=== PATIENT | male | born 1945 | race Caucasian/White ===

== ENCOUNTER → 2017-11-01 15:31 | Outpatient (CLI) | payer MEDICARE, SELFPAY ==
--- NOTE | 2017-11-01 | TISS_PTH ---
PATIENT: NATHAN GARCIA LOC: POLAB3 U#:[id number] AGE/SX: 80/M ROOM: RE11/01/[address]: Dr. Brent Rivera MD : 1945 BED: DIS: SPEC #: [id number] RECD: 11/02/17 13:37 STATUS: JAZZY ROSITA #: [id number] CORRY: 11/01/17 00:[address]: Brent Rivera Chi DEPT: SURGICAL PATHOLOGY RECD BY: Manuel Busby Tissues: Jaw, NOS Procedures: Surgery Specimen Level IV HEADER OPERATION: Not noted PRE-OP DIAGNOSIS: L81.9 TISSUE SUBMITTED: Jaw MICROSCOPIC DIAGNOSIS Jaw lesion, biopsy: Inflamed seborrheic keratosis. Solar elastosis. SJ:ike 11/03/17 MICROSCOPIC DESCRIPTION Slides are reviewed. GROSS DESCRIPTION Received is one container labeled with the patient's name and not further designated. The specimen consists of two irregular fragments of light aguiar skin ranging in size from 0.5 to 1 cm. The specimen is totally submitted in one cassette. / AM:ike 11/02/17 TC:1 CPT: 03405
== END ==
PROVIDERS: Family Provider Family Medicine Geriatric Medicine; PCP Family Medicine Geriatric Medicine; Visit Provider Family Medicine Geriatric Medicine
DX: L82.0 Inflamed seborrheic keratosis (principal); L57.8 Other skin changes due to chronic exposure to nonionizing radiation
CPT/HCPCS: 88305

== ENCOUNTER → 2018-01-23 12:05 | Outpatient (CLI) | payer MEDICARE, SELFPAY ==
[2018-01-23 12:40] LABS: Absolute Lymphocyte Count 1.41 X10^3/ul (0.83-4.51); Absolute Neutrophil Count 3.8 X10^3/uL (2.0-7.7); Basophil# 0.04 X10^3/uL; Basophil% 0.7 % (0-1); Eosinophils% 1.7 % (0-5); Hematocrit 46.3 % (40-54); Hemoglobin 15.9 g/dl (13.0-16.5); Lymphocyte # 1.41 X10^3/ul (4.0); Lymphocyte % 23.9 % (19-41); Mean Corp Hgb Conc 34.3 g/gl (32-36); Mean Corpuscular Hgb 31.2 pg (27.0-32.0); Mean Platelet Vol. 10.5 fl (6.2-12.0); Monocyte# 0.57 X10^3/uL; Monocyte% 9.7 % (0-10); Neutrophil # 3.77 X10^3/uL (2.7-7.7); Neutrophil % 63.8 % (47-70); Platelet Count 216 K/mm3 (150-450); RBC Distribution Width CV 13.8 % (11.6-14.6); RBC Distribution Width SD 45.5 fl (35.1-43.9); Red Blood Count 5.09 M/mm3 (4.6-6.2); White Blood Count 5.9 K/mm3 (4.4-11.0)
[2018-01-23 12:41] LABS: POSITIVE COUNT NO; POSITIVE DIFFERENTIAL NO; POSITIVE MORPHOLOGY NO
[2018-01-23 13:05] LABS: AST(SGOT) 26 U/L (15-37); Alanine Aminotransfer ALT/SGPT 17 U/L (16-61); Albumin, Serum 3.8 g/dL (3.2-5.0); Alkaline Phosphatase 61 U/L (45-117); Anion Gap 7 (5-15); BUN 10 mg/dL (7-18); BUN/Creat Ratio 7.5 RATIO (10-20); Chloride 109 mmol/L (98-107); Creatinine, Serum 1.34 mg/dL (0.70-1.30); EST Glomerular Filtration Rate 56 mL/min (>60); Est Glom Filt Rate - Afr Amer 67 mL/min (>60); Globulin 3.8 g/dL (2.2-4.2); Glucose 92 mg/dL (74-106); Protein, Total 7.6 g/dL (6.4-8.2); Sodium Level 140 mmol/L (136-145); Thyroid Stim Hormone (TSH) 1.45 uIU/mL (0.358-3.74)
== END ==
PROVIDERS: Family Provider Family Medicine Geriatric Medicine; PCP Family Medicine Geriatric Medicine; Visit Provider Family Medicine Geriatric Medicine
DX: R53.83 Other fatigue (principal)
CPT/HCPCS: 36415; 80053; 84443; 85025

== ENCOUNTER → 2018-02-01 09:32 | Outpatient (CLI) | payer MEDICARE, SELFPAY ==
[2018-02-01 13:10] LABS: Absolute Lymphocyte Count 1.23 X10^3/ul (0.83-4.51); Absolute Neutrophil Count 3.2 X10^3/uL (2.0-7.7); Basophil# 0.04 X10^3/uL; Basophil% 0.8 % (0-1); Eosinophil# 0.08 X10^3/uL; Eosinophils% 1.6 % (0-5); Hematocrit 44.6 % (40-54); Hemoglobin 14.6 g/dl (13.0-16.5); Lymphocyte # 1.23 X10^3/ul (4.0); Lymphocyte % 24.4 % (19-41); Mean Corp Hgb Conc 32.7 g/gl (32-36); Mean Corpuscular Hgb 30.2 pg (27.0-32.0); Mean Corpuscular Volume 92.1 fL (80-94); Mean Platelet Vol. 9.7 fl (6.2-12.0); Monocyte# 0.54 X10^3/uL; Monocyte% 10.7 % (0-10); Neutrophil # 3.16 X10^3/uL (2.7-7.7); Neutrophil % 62.5 % (47-70); Platelet Count 184 K/mm3 (150-450); RBC Distribution Width CV 13.6 % (11.6-14.6); RBC Distribution Width SD 45.1 fl (35.1-43.9); Red Blood Count 4.84 M/mm3 (4.6-6.2); White Blood Count 5.1 K/mm3 (4.4-11.0)
[2018-02-01 13:11] LABS: POSITIVE COUNT NO; POSITIVE DIFFERENTIAL NO; POSITIVE MORPHOLOGY NO
[2018-02-01 13:31] LABS: AST(SGOT) 16 U/L (15-37); Alanine Aminotransfer ALT/SGPT 20 U/L (16-61); Albumin, Serum 3.6 g/dL (3.2-5.0); Alkaline Phosphatase 57 U/L (45-117); Anion Gap 6 (5-15); BUN 11 mg/dL (7-18); BUN/Creat Ratio 8.7 RATIO (10-20); Calcium,Total 8.6 mg/dL (8.5-10.1); Chloride 109 mmol/L (98-107); Creatinine, Serum 1.27 mg/dL (0.70-1.30); EST Glomerular Filtration Rate 59 mL/min (>60); Est Glom Filt Rate - Afr Amer 72 mL/min (>60); Globulin 3.6 g/dL (2.2-4.2); Glucose 85 mg/dL (74-106); Potassium 4.6 mmol/L (3.5-5.1); Protein, Total 7.2 g/dL (6.4-8.2); Sodium Level 142 mmol/L (136-145); Thyroid Stim Hormone (TSH) 1.28 uIU/mL (0.358-3.74); Uric Acid 5.2 mg/dL (3.5-7.2)
[2018-02-01 13:50] LABS: Vitamin D,25 Hydroxy 26.1 ng/mL (29.95-100.01)
[2018-02-02 11:08] LABS: Hep C Antibodies <0.1 s/co ratio (0.0-0.9)
== END ==
PROVIDERS: Family Provider Family Medicine Geriatric Medicine; PCP Family Medicine Geriatric Medicine; Visit Provider Family Medicine Geriatric Medicine
DX: E55.9 Vitamin D deficiency, unspecified (principal); M10.9 Gout, unspecified; R53.83 Other fatigue; Z13.89 Encounter for screening for other disorder
CPT/HCPCS: 36415; 80053; 82306; 84443; 84550; 85025; 86803

== ENCOUNTER 2018-02-15 06:49 | Day surgery (SDC) | payer MEDICARE, SELFPAY ==
[2018-02-15] VITALS (7 sets, daily range): BP systolic 101–142; BP diastolic 66–86; PULSE 53–81; RESP 16; TEMP 36.1–36.3; O2SAT 94–96; BMI 22.4
--- NOTE | 2018-02-15 | COLBX_PTH ---
PATIENT: NATHAN GARCIA LOC: EN U#:[id number] AGE/SX: 73/M ROOM: RE02/15/[address]: Dr. Darrick Wright MD : 1945 BED: DIS: 02/15/2018 SPEC #: [id number] RECD: 02/15/18 13:23 STATUS: JAZZY REOctavia #: [id number] CORRY: 02/15/18 00:[address]: Darrick Wright DEPT: SURGICAL PATHOLOGY RECD BY: Raimundo Sanders ENTERED: 02/15/18 13:24 SP TYPE: COLON BX OTHR DR: Dr. Brent Rivera MD Tissues: Cecum, NOS Procedures: Surgery Specimen Level IV HEADER OPERATION: Colonoscopy PRE-OP DIAGNOSIS: Screening TISSUE SUBMITTED: Cecal polyp MICROSCOPIC DIAGNOSIS Cecal polyp, biopsy: Tubular adenoma. SJ:ike 02/16/18 MICROSCOPIC DESCRIPTION Slides are reviewed. GROSS DESCRIPTION Received in fixative is one container labeled with the patient's name and designated cecal polyp. The specimen consists of a aguiar-pink polyp measuring 0.6 x 0.5 x 0.3 cm. The specimen is totally submitted in one cassette. / SJ:ike 02/15/18 TC:1 CPT: 28245
--- NOTE | 2018-02-15 08:19 | PCM.HP.STD ---
Problem List (1) Family history of colon cancer in father Status: Acute History of Present Illness Date of Admission: 02/15/18 The patient is a 73 year old M with a family history of colon cancer in his father. He presents today for colonoscopy. Past Medical History Past Medical History (Chronic Problems): Chronic Problems Allergic sinusitis (Chronic) Allergies Penicillins Allergy (Verified 02/09/18 10:33) Anaphylaxis Home Medications: Ambulatory Orders Medication Instructions Recorded Levothyroxine Sodium 25 mcg PO DAILY 07/28/16 [Levothyroxine Sodium] Pravastatin Sodium [Pravastatin 40 mg PO QHS 07/28/16 Sodium] Surgical History: no surgical history, noncontributory Smoking Status: Former smoker - *Family History Maternal History Items: No pertinent history Review of Systems Cardiovascular: Denies: Chest Pain, Chest Pressure, Chest Tightness, Palpitations Respiratory: Denies: Cough, Hemoptysis, Shortness of breath at rest, Shortness of breath upon exertion, Wheezing Gastrointestinal: Denies: Abdominal Pain, Constipation, Diarrhea, Hematemesis, Nausea, Melena, Vomiting VTE Information - Inpt Only VTE Present on Admission: No VTE Mechan Device Prophylaxis: None VTE Pharm Prophylaxis ordered?: No Reason prophylaxis not ordered:: Treatment Not Indicated Patient Problems: Active and Suspected Problems Family history of colon cancer in father (Acute) - Physical Exam Lungs: Clear to auscultation Cardiovascular: Regular rate, Regular Rhythm, No murmurs Abdomen: Bowel Sounds Present, Soft, Non Tender, Non-Distended Vital Signs Temp Pulse Resp BP Pulse Ox 97.4 F L 81 16 142/86 H 96 02/15/18 07:15 02/15/18 07:15 02/15/18 07:15 02/15/18 07:15 02/15/18 07:15 Oxygen Delivery Method Room Air Weight: 165 lb 9.074 oz Body Mass Index (BMI) 22.4 Assessment/Plan Active and Suspected Problems Family history of colon cancer in father (Acute) Plan is to perform a colonoscopy on him.
--- NOTE | 2018-02-15 08:21 | PCM.OPRPT ---
Problem List (1) Family history of colon cancer in father Status: Acute Report of Operation Date of Procedure: 02/15/18 Pre-Operative Diagnosis: Z80.0 family history of colon cancer (father) Post-Operative Diagnosis: Same Surgery/Procedure Performed:: [id number] colonoscopy with snare polypectomy Type of Anesthesia:: MAC Anesthesiologist: Lico Jean Description of Procedure: Patient was brought into the endoscopy suite. Placed in the left lateral decubitus position. Was given graded anesthesia. Colonoscope was inserted into the rectum. It was directed through the sigmoid colon, descending colon, transverse colon, ascending colon, to the cecum without difficulty. Operative findings: 1. Cecum: Normal appearance no mass lesions normal ileocecal valve. A polyp was identified it was removed with snare cautery technique and brought back to the channel of the scope. 2. Ascending colon: Normal appearance no mass lesions. 3. Transverse colon: Normal appearance no mass lesions. 4. Descending colon: Normal appearance no mass lesions. 5. Sigmoid colon: Normal appearance moderate amount of diverticular disease was identified no mass lesions. 6. Rectum: Normal appearance no mass lesions retroflexion showed some in internal hemorrhoids scope was withdrawn digital rectal exam was performed showing prostate with no nodules he did have external hemorrhoids as well. Patient will need to have another colonoscopy in 3 years. - Admit VTE Documentation VTE Present on Admission: No VTE Mechan Device Prophylaxis: None VTE Pharm Prophylaxis ordered?: No Reason prophylaxis not ordered:: Treatment Not Indicated
== END 2018-02-15 09:07 | disposition home or self-care (01) ==
LOC: EN 06:50 → AC 06:52
PROVIDERS: Family Provider Family Medicine Geriatric Medicine; PCP Family Medicine Geriatric Medicine; Visit Provider Surgery
PROC: 0DJD8ZZ Inspection of Lower Intestinal Tract, Via Natural or Artificial Opening Endoscopic (ICD-10-PCS; CPT 45378; principal; 2018-02-15 07:55)
DX: D12.0 Benign neoplasm of cecum (principal); K64.8 Other hemorrhoids; Z80.0 Family history of malignant neoplasm of digestive organs; J30.9 Allergic rhinitis, unspecified; Z87.891 Personal history of nicotine dependence
CPT/HCPCS: 45385; 88305; J7120

== ENCOUNTER → 2018-02-27 06:36 | Outpatient (CLI) | payer MEDICARE, SELFPAY ==
--- NOTE | 2018-02-27 06:36 | DT_ITS ---
This patient was seen during an EMR downtime February 20, 2018 - February 27, 2018. This patient may have a combination of paper and electronic documentation or all paper documentation. All documentation is viewable within the e-chart portion of [facility] for each patient visit.
--- NOTE | 2018-02-27 06:40 | CT_ITS ---
STUDY: LOW DOSE CT LUNG CANCER SCREENING REASON FOR EXAM: Male, 73 years old. Former smoker. Quit 3 years ago. 15-20 pack year history. RADIATION DOSAGE (If Supplied By Facility): CTDIvol = ( 3.02 ) mGy, DLP = ( 116.26 ) mGycm TECHNIQUE: No contrast was administered. Low dose technique was utilized (average mAS-38 and kVp 120). 1.25 mm axial source images with a slice interval of 1.25-mm were reconstructed in lung windows. 2.5 mm axial source images with a slice interval of 2.5-mm were reconstructed in lung windows. 5.0 mm axial source images with a slice interval of 5.0-mm were reconstructed in soft tissue windows. Nodule measured using lung windows on PACS and/or independent workstation with automated measurement of minimum and maximum diameter. Nodule measurement reported as average diameter rounded to the nearest whole number. Growth is defined as an increase ins size of greater than 1.5 mm. COMPARISON: May 20, 2017. NODULES: Total lung nodules (excluding granulomas): 0 Emphysema: There is diffuse emphysematous changes. Again seen is linear scarring along the right lung base unchanged from prior study. There is mild subpleural septal thickening in both lung bases. Endobronchial lesion: None Aorta: There is minimal atherosclerotic changes of the thoracic aorta without aneurysm. Coronary arteries: There are stable coronary artery calcifications. Heart: Normal in size. Pulmonary artery: Normal in size. Mediastinal nodes: There is diffuse nonspecific mediastinal lymphadenopathy which appears unchanged from the prior study. Other chest and abdominal findings: There are degenerative changes of the thoracic spine. CT/Low Dose CT Lung Screening IMPRESSION: Lung-RADS category 1 - Continue annual screening with LDCT in 12 months. IMPORTANT NOTES FOR USE: ACR Lung-RADS Version 1.0 Assessment Categories Release Date: January 14, 2014 Category: Coded 0-4 bases on nodule(s) with highest degree of suspicion. Negative screen is defined as categories 1 and 2; a positive screen is defined as categories 3 and 4. Category 3 and 4A nodules that are unchanged on interval CT should be coded as category 2, and individuals returned to screening in 12 months. Category 4X: Category 3 or 4 nodules with additional imaging findings that increase the suspicion of lung cancer, such as spiculation, GGN that doubles in size in 1 year, enlarged lymph notes, etc. Category Modifiers: S (significant finding unrelated to lung cancer) and C (prior history of treated lung cancer) may be added to the 0-4 Lung-RADS Electronically Signed: Froilan Chaudhari DO at 8:46 EDT Tel [phone], Service support ,
--- NOTE | 2018-02-27 07:35 | US_ITS ---
PROCEDURES: ULTRASOUND AORTA REASON FOR EXAM: Male, 73 years old. AAA TECHNIQUE: Ultrasound evaluation of the aorta was performed with real-time and static fernandez-scale imaging. COMPARISON: None. FINDINGS: There is atherosclerotic plaque formation of the abdominal aorta. Aorta measures: Proximal 2.0 cm. Middle 3.6 cm. Distal 2.1 cm. Right iliac artery measures: 0.8 cm. Right iliac artery measure transversely: 0.7 cm. Left iliac artery measures: 0.8 cm. Left iliac artery measure transversely: 0.8 cm. US/Aorta IMPRESSION: Mild aneurysmal dilatation mid abdominal aorta measuring 3.6 cm. Atherosclerotic changes. Electronically Signed: Wes Farias DO at 23:02 EDT , Service support ,
== END ==
PROVIDERS: Family Provider Family Medicine Geriatric Medicine; PCP Family Medicine Geriatric Medicine; Visit Provider Family Medicine Geriatric Medicine
DX: I71.4 Abdominal aortic aneurysm, without rupture (principal); Z87.891 Personal history of nicotine dependence
CPT/HCPCS: 76775; G0297

== ENCOUNTER → 2018-08-08 13:48 | Outpatient (CLI) | payer MEDICARE, SELFPAY ==
[2018-08-08 17:18] LABS: Absolute Lymphocyte Count 1.59 X10^3/ul (0.83-4.51); Basophil# 0.04 X10^3/uL; Basophil% 0.6 % (0-1); Eosinophil# 0.09 X10^3/uL; Eosinophils% 1.4 % (0-5); Hematocrit 42.9 % (40-54); Hemoglobin 14.1 g/dl (13.0-16.5); Lymphocyte # 1.59 X10^3/ul (4.0); Lymphocyte % 25.6 % (19-41); Mean Corp Hgb Conc 32.9 g/gl (32-36); Mean Corpuscular Hgb 30.9 pg (27.0-32.0); Mean Corpuscular Volume 93.9 fL (80-94); Mean Platelet Vol. 10.2 fl (6.2-12.0); Monocyte# 0.51 X10^3/uL; Monocyte% 8.2 % (0-10); Neutrophil # 3.97 X10^3/uL (2.7-7.7); Neutrophil % 63.9 % (47-70); Platelet Count 194 K/mm3 (150-450); RBC Distribution Width SD 45.8 fl (35.1-43.9); Red Blood Count 4.57 M/mm3 (4.6-6.2); White Blood Count 6.2 K/mm3 (4.4-11.0)
[2018-08-08 17:22] LABS: POSITIVE COUNT NO; POSITIVE DIFFERENTIAL NO; POSITIVE MORPHOLOGY NO
[2018-08-08 17:43] LABS: Vitamin D,25 Hydroxy 26.6 ng/mL (29.95-100.01)
[2018-08-08 17:47] LABS: ALB/GLOB Ratio 1.1 RATIO (0.9-2.4); AST(SGOT) 17 U/L (15-37); Alanine Aminotransfer ALT/SGPT 20 U/L (16-61); Albumin, Serum 3.6 g/dL (3.2-5.0); Alkaline Phosphatase 57 U/L (45-117); Anion Gap 6 (5-15); BUN 11 mg/dL (7-18); BUN/Creat Ratio 8.9 RATIO (10-20); Calcium,Total 8.4 mg/dL (8.5-10.1); Chloride 106 mmol/L (98-107); Creatinine, Serum 1.24 mg/dL (0.70-1.30); EST Glomerular Filtration Rate 61 mL/min (>60); Est Glom Filt Rate - Afr Amer 73 mL/min (>60); Globulin 3.4 g/dL (2.2-4.2); Glucose 74 mg/dL (74-106); Potassium 4.1 mmol/L (3.5-5.1); Sodium Level 138 mmol/L (136-145); Thyroid Stim Hormone (TSH) 2.69 uIU/mL (0.358-3.74); Uric Acid 4.5 mg/dL (3.5-7.2)
== END ==
PROVIDERS: Family Provider Family Medicine Geriatric Medicine; PCP Family Medicine Geriatric Medicine; Visit Provider Family Medicine Geriatric Medicine
DX: E55.9 Vitamin D deficiency, unspecified (principal); M10.9 Gout, unspecified; R53.83 Other fatigue
CPT/HCPCS: 36415; 80053; 82306; 84443; 84550; 85025

== ENCOUNTER → 2019-02-05 | Outpatient (CLI) | payer MEDICARE, SELFPAY ==
[2018-02-15 07:15] VITALS: BMI 22.4
[2019-02-05 17:53] LABS: White Blood Count 5.8 K/mm3 (4.4-11.0)
[2019-02-05 17:54] LABS: Absolute Lymphocyte Count 2.07 X10^3/ul (0.83-4.51); Basophil# 0.04 X10^3/uL; Basophil% 0.7 % (0-1); Eosinophil# 0.08 X10^3/uL; Eosinophils% 1.4 % (0-5); Hematocrit 42.1 % (40-54); Lymphocyte # 2.07 X10^3/ul (4.0); Lymphocyte % 35.6 % (19-41); Mean Corp Hgb Conc 33.3 g/gl (32-36); Mean Corpuscular Hgb 30.5 pg (27.0-32.0); Mean Corpuscular Volume 91.7 fL (80-94); Monocyte# 0.61 X10^3/uL; Monocyte% 10.5 % (0-10); Neutrophil # 3.01 X10^3/uL (2.7-7.7); Neutrophil % 51.6 % (47-70); POSITIVE COUNT NO; POSITIVE DIFFERENTIAL NO; POSITIVE MORPHOLOGY NO; Platelet Count 184 K/mm3 (150-450); RBC Distribution Width CV 14.2 % (11.6-14.6); RBC Distribution Width SD 47.1 fl (35.1-43.9); Red Blood Count 4.59 M/mm3 (4.6-6.2)
[2019-02-05 18:01] LABS: Vitamin D,25 Hydroxy 33.8 ng/mL (29.95-100.01)
[2019-02-05 18:02] LABS: ALB/GLOB Ratio 1.2 RATIO (0.9-2.4); AST(SGOT) 19 U/L (15-37); Alanine Aminotransfer ALT/SGPT 19 U/L (16-61); Albumin, Serum 3.8 g/dL (3.2-5.0); Alkaline Phosphatase 49 U/L (45-117); Anion Gap 7 (5-15); BUN 11 mg/dL (7-18); BUN/Creat Ratio 8.3 RATIO (10-20); Calcium,Total 8.8 mg/dL (8.5-10.1); Chloride 110 mmol/L (98-107); Creatinine, Serum 1.33 mg/dL (0.70-1.30); EST Glomerular Filtration Rate 56 mL/min (>60); Est Glom Filt Rate - Afr Amer 68 mL/min (>60); Globulin 3.2 g/dL (2.2-4.2); Glucose 79 mg/dL (74-106); Potassium 4.3 mmol/L (3.5-5.1); Sodium Level 141 mmol/L (136-145); Thyroid Stim Hormone (TSH) 1.31 uIU/mL (0.358-3.74); Uric Acid 5.5 mg/dL (3.5-7.2)
== END | disposition home or self-care (01) ==
PROVIDERS: Family Provider Family Medicine Geriatric Medicine; PCP Family Medicine Geriatric Medicine; Visit Provider Family Medicine Geriatric Medicine
DX: E55.9 Vitamin D deficiency, unspecified (principal); M10.9 Gout, unspecified; R53.83 Other fatigue
CPT/HCPCS: 36415; 80053; 82306; 84443; 84550; 85025

== ENCOUNTER → 2019-02-07 | Outpatient (CLI) | payer MEDICARE, SELFPAY ==
[2018-02-15 07:15] VITALS: BMI 22.4
--- NOTE | 2019-02-07 10:30 | US_ITS ---
PROCEDURES: ULTRASOUND AORTA REASON FOR EXAM: Male, 74 years old. Aortic rupture TECHNIQUE: Ultrasound evaluation of the aorta was performed with real-time and static fernandez-scale imaging. COMPARISON: None. FINDINGS: There is no elongation or tortuosity of the abdominal aorta. Aorta measures: Proximal 2.1 cm. Middle 3.2 cm. Distal 2.1 cm. Aorta measure transversely: Proximal 2 cm. Middle 3.6 cm. Distal 2.3 cm. Right iliac artery measures: 0.9 cm. Right iliac artery measure transversely: 0.9 cm. Left iliac artery measures: 1.0 cm. Left iliac artery measure transversely: 0.9 cm. Fusiform aneurysmal dilatation of the aorta measuring 3.6 cm in diameter and 3.2 cm in length. There is calcified atherosclerosis.. US/Aorta IMPRESSION: Fusiform aneurysmal dilatation of the aorta measuring 3.6 cm in diameter and 3.2 cm in length. There is calcified atherosclerosis.. Electronically Signed: oClt Camargo MD at 6:23 EDT , Service support ,
== END | disposition home or self-care (01) ==
PROVIDERS: Family Provider Family Medicine Geriatric Medicine; PCP Family Medicine Geriatric Medicine; Referring Provider Family Medicine Geriatric Medicine; Visit Provider Family Medicine Geriatric Medicine
DX: I71.4 Abdominal aortic aneurysm, without rupture (principal)
CPT/HCPCS: 76775

== ENCOUNTER → 2019-02-13 | Outpatient (CLI) | payer MEDICARE, SELFPAY ==
[2018-02-15 07:15] VITALS: BMI 22.4
--- NOTE | 2019-02-13 06:44 | CT_ITS ---
HISTORY: 1PPD X 46 YEARS. QUIT NOW EXAMINATION: CT Low Dose CT Chest for Lung Cancer Screening TECHNIQUE: Helically acquired images were obtained of the chest utilizing low-dose technique. A radiation dose optimization technique was used for this scan. IV Contrast dosage and agent: None. COMPARISON: 02/27/2018 FINDINGS: Stable findings. Chronic lung disease with centrilobular emphysema. Right basilar interstitial scarring and bilateral septal interstitial thickening and subpleural mild scarring. I will take care of it No acute infiltrate. No pulmonary nodule or suspicious lesion. No central obstructing lesion. Mild bronchial dilatation without stepan bronchiectasis. No pleural effusion or significant pleural disease. Atherosclerotic thoracic aorta which is normal in caliber. Coronary artery calcifications. No suspicious lymph enlargement. Bones: No acute osseous abnormality. Chronic fracture deformity of the left ribs. CT/Low Dose CT Lung Screening IMPRESSION: 1. Stable exam. No evidence of acute disease or suspicious lesion. 2. Chronic lung disease with emphysema and mild scarring. 3. Atherosclerotic calcifications including coronary artery calcifications. 4. Recommend continued surveillance with follow-up low-dose CT chest exam in 1 year. Lung-RADS category 1: Negative Individualized dose optimization techniques were used for this CT. at 0808 Reported and signed by: Derrick Siddiqui MD Electronically Signed: Derrick Siddiqui, at 8:07 EDT Tel , Service support ,
== END | disposition home or self-care (01) ==
LOC: CT 06:43
PROVIDERS: Family Provider Family Medicine Geriatric Medicine; PCP Family Medicine Geriatric Medicine; Referring Provider Family Medicine Geriatric Medicine; Visit Provider Family Medicine Geriatric Medicine
DX: Z87.891 Personal history of nicotine dependence (principal)
CPT/HCPCS: G0297

== ENCOUNTER 2019-03-31 05:34 | Emergency (ER) | payer MEDICARE, SELFPAY ==
[2019-03-31 05:35] VITALS: BP 151/87; PULSE 56; RESP 18; TEMP 36.4; O2SAT 95; BMI 20.9
--- NOTE | 2019-03-31 05:51 | ED.VISSUMM ---
- ER Visit Summary Date of Service: 03/31/19 Chief Complaint: Rash History of Present Illness: The patient is a 74 M who presents with a rash. He was recently working out in the yard. He thinks he was exposed to poison malou. He became very pruritic this morning. He states he started feel short of breath but states that he got himself all worked up and thinks this was anxiety related. He is no longer short of breath. Physical Examination: Afebrile vital signs unremarkable No distress resting comfortable he Moist mucous membranes Heart regular No respiratory distress There is a papular rash to the bilateral forearms consistent with a contact dermatitis Test Results: Not indicated Emergency Department Course and Treatment: Patient presents with what appears to be a contact dermatitis, likely Toxicodendron. Patient was treated with intramuscular Kenalog. He was advised on supportive care. He understands to return for new or worsening symptoms. He was discharged. Treatment Plan: [] Disposition: Discharge Impression: Contact dermatitis This note was generated with OneTouch dictation software. It may contain incorrect words, spelling, and punctuation that were not noted in review of the chart prior to signing ED Disposition - Plan for ED Patient: Referrals: Brent Rivera Chi, MD [Primary Care Provider] -
--- NOTE | 2019-03-31 05:53 | ED.DEP ---
ED Disposition - Plan for ED Patient: Instructions: Contact Dermatitis Referrals: Brnet Rivera Chi, MD [Primary Care Provider] -
[2019-03-31] MEDS: Triamcinolone Acetonide 40 MG/ML Vial IM (06:09)
--- NOTE | 2019-03-31 06:28 | ED.RN ---
pt was observed on shot time for 15 min, no reaction was observed by this nurse.
== END 2019-03-31 06:29 | disposition home or self-care (01) ==
LOC: ED 06:06
PROVIDERS: Emergency Provider Emergency Medicine; Family Provider Family Medicine Geriatric Medicine; PCP Family Medicine Geriatric Medicine
DX: L25.9 Unspecified contact dermatitis, unspecified cause (principal); E78.00 Pure hypercholesterolemia, unspecified; E03.9 Hypothyroidism, unspecified; F41.9 Anxiety disorder, unspecified; Z79.899 Other long term (current) drug therapy; Z87.891 Personal history of nicotine dependence
CPT/HCPCS: 96372; 99282

== ENCOUNTER 2019-07-14 06:13 | Emergency (ER) | payer MEDICARE, SELFPAY ==
[2019-07-14 06:16] VITALS: BP 182/103; PULSE 88; RESP 24; TEMP 36.8; O2SAT 96; BMI 21.7
--- NOTE | 2019-07-14 06:30 | EKG12_ITS ---
Test Reason : CP Blood Pressure : / mmHG Vent. Rate : 073 BPM Atrial Rate : 073 BPM P-R Int : 124 ms QRS Dur : 084 ms QT Int : 368 ms P-R-T Axes : 062 023 040 degrees QTc Int : 405 ms Normal sinus rhythm Possible Left atrial enlargement Borderline ECG Confirmed by BRET HARLEY, HAYLEY ([id number]), health editor JUAN CARLOS ALARCON ([id number]) on 07/17/2019 10:47:31 AM Referred By: Confirmed By:HAYLEY QUEEN MD
--- NOTE | 2019-07-14 06:30 | RAD_ITS ---
STUDY: X-RAY CHEST REASON FOR EXAM: Male, 74 years old. Right-sided chest pain. TECHNIQUE: PA and lateral views of the chest. COMPARISON: 02/19/2015. FINDINGS: The lungs are slightly underexpanded with mild bilateral basilar atelectasis, otherwise clear. There is no demonstrated pleural abnormality. Normal size heart. Normal mediastinum and kari. Normal visualized pulmonary arteries. There is atherosclerotic tortuosity of the aortic arch and descending thoracic aorta. Normal visualized thoracic spine. Normal visualized ribs, clavicles, and shoulders. There is no demonstrated abnormality of the visualized soft tissue structures of the upper abdomen. RAD/Chest PA and Lateral IMPRESSION: Mild bilateral basilar atelectasis, otherwise no acute process identified. Electronically Signed: Barbie Gibbons MD at 7:03 EDT , Service support ,
--- NOTE | 2019-07-14 06:31 | ED.DCSUM_ITS ---
History of Present Illness Chief Complaint: Chest Pain Narrative: Patient is a 74-year-old male who presents with right lower chest pain. This began yesterday evening. Initially he attributed it to a pulled muscle. He does note that he was lifting a heavy trash bag on that side yesterday. He denies any shortness of breath. He has had some sinus symptoms with sinus pressure and congestion. He developed a nonproductive cough today. No fevers nausea vomiting diarrhea. No abdominal pain. Past Medical History - Allergies and Home Meds Allergies/Adverse Reactions: Allergies Penicillins Allergy (Verified 07/14/19 06:13) Anaphylaxis Primary Care Physician: Brent Rivera Chi, MD [Primary Care Provider] - Past Medical History: - - Hypertension, hypothyroidism Surgical History: no surgical history, noncontributory Smoking Status: Former smoker - Family History Maternal Family History: Reports: No pertinent history Review of Systems All systems negative except as indicated General: Denies: Fever Cardiovascular: Reports: Chest pain Respiratory: Denies: Dyspnea Gastrointestinal: Denies: Abdominal pain, Nausea, Vomiting Physical Exam Vital Signs/Narrative: Vital Signs Temp Pulse Resp BP Pulse Ox 07/14/19 06:16 98.3 F 88 24 H 182/103 H 96 Inital Vital Signs reviewed: Yes General: Well nourished Head: Normocephalic Eyes: EOMI ENT: Moist mucous membranes Neck: Supple Cardiovascular: Regular rate, Regular rhythm Respiratory: No distress, CTA bilaterally, Chest tenderness - Right lower chest wall tenderness no crepitus Abdomen: Soft, Nontender Skin: Normal color, No rash Neurological: Alert Psychological: - - Patient is very anxious, tremulous Diagnostic/Tx/Re-eval Impressions Chest X-Ray 07/14/19 06:30 IMPRESSION: Mild bilateral basilar atelectasis, otherwise no acute process identified. Electronically Signed: Barbie Gibbons MD at 7:03 EDT , Service support , 07/14/19 06:30 Chest PA and Lateral [RAD] Stat Laboratory Results 07/14/19 07/14/19 06:15 06:15 WBC 9.8 RBC 4.92 Hgb 15.5 Hct 46.3 MCV 94.1 H MCH 31.5 MCHC 33.5 RDW Std Deviation 45.8 H RDW Coeff of Glenn 13.4 Plt Count 180 MPV 9.4 Immature Gran % (Auto) 0.500 Neut % (Auto) 69.8 Lymph % (Auto) 18.5 L [place] % (Auto) 9.3 Eos % (Auto) 1.2 Baso % (Auto) 0.7 Absolute Neuts (auto) 6.9 Absolute Lymphs (auto) 1.82 Nucleated RBC % 0 Sodium 140 Potassium 4.0 Chloride 108 H Carbon Dioxide 28.0 Anion Gap 4 L BUN 16 Creatinine 1.26 Estim Creat Clear Calc 52.80 Est GFR (MDRD) Af Amer 72 Est GFR (MDRD) Non-Af 59 L BUN/Creatinine Ratio 12.7 Glucose 106 Calcium 8.7 Total Bilirubin 0.50 AST 17 ALT 17 Alkaline Phosphatase 68 Troponin I < 0.015 Total Protein 7.6 Albumin 3.6 Globulin 4.0 Albumin/Globulin Ratio 0.9 - Medical Decision Making EKG shows normal sinus rhythm at a rate of 73 with no acute ischemic changes. Laboratory studies including troponin are unremarkable. Chest x-ray shows atelectasis but otherwise no acute process. Given patient's reproducible right- sided chest pain with normal EKG and negative troponin with about 12 hours of symptoms I do not believe this is cardiac in nature. His pain seems to be musculoskeletal nature. He does have a mechanism of injury his pain is positional and reproducible. He was reassured and advised on supportive care. He was given a dose of tramadol here for pain and a prescription for short course of the same and was discharged home. ED Disposition - Plan for ED Patient: Disposition: Home or Assisted Living Diagnosis: Chest wall pain Instructions: Chest Wall Strain Prescriptions: traMADol [Ultram] 50 mg PO Q6H PRN 3 Days #12 tab PRN Reason: Pain Prescription Printed Referrals: Brent Rivera Chi, MD [Primary Care Provider] -
[2019-07-14 06:39] LABS: Absolute Lymphocyte Count 1.82 X10^3/uL (0.83-4.51); Absolute Neutrophil Count 6.9 X10^3/uL (2.0-7.7); Basophil# 0.07 X10^3/uL; Basophil% 0.7 % (0-1); Eosinophil# 0.12 X10^3/uL; Eosinophils% 1.2 % (0-5); Hematocrit 46.3 % (40-54); Hemoglobin 15.5 g/dL (13.0-16.5); Lymphocyte # 1.82 X10^3/ul (4.0); Lymphocyte % 18.5 % (19-41); Mean Corp Hgb Conc 33.5 g/dL (32-36); Mean Corpuscular Hgb 31.5 pg (27.0-32.0); Mean Corpuscular Volume 94.1 fL (80-94); Mean Platelet Vol. 9.4 fl (6.2-12.0); Monocyte# 0.91 X10^3/uL; Monocyte% 9.3 % (0-10); NRBC Flagged by Analyzer 0 % (0-5); Neutrophil # 6.86 X10^3/uL (2.7-7.7); Neutrophil % 69.8 % (47-70); Platelet Count 180 K/mm3 (150-450); RBC Distribution Width CV 13.4 % (11.6-14.6); RBC Distribution Width SD 45.8 fl (35.1-43.9); Red Blood Count 4.92 M/mm3 (4.6-6.2); White Blood Count 9.8 K/mm3 (4.4-11.0)
[2019-07-14 06:54] LABS: ALB/GLOB Ratio 0.9 RATIO (0.9-2.4); AST(SGOT) 17 U/L (15-37); Alanine Aminotransfer ALT/SGPT 17 U/L (16-61); Albumin, Serum 3.6 g/dL (3.2-5.0); Alkaline Phosphatase 68 U/L (45-117); Anion Gap 4 (5-15); BUN 16 mg/dL (7-18); BUN/Creat Ratio 12.7 RATIO (10-20); Calcium,Total 8.7 mg/dL (8.5-10.1); Chloride 108 mmol/L (98-107); Creatinine, Serum 1.26 mg/dL (0.70-1.30); EST Glomerular Filtration Rate 59 mL/min (>60); Est Glom Filt Rate - Afr Amer 72 mL/min (>60); Glucose 106 mg/dL (74-106); Protein, Total 7.6 g/dL (6.4-8.2); Sodium Level 140 mmol/L (136-145)
[2019-07-14 07:12] VITALS: BP 144/88; PULSE 79; RESP 20; O2SAT 92
== END 2019-07-14 07:24 | disposition home or self-care (01) ==
PROVIDERS: Emergency Provider Emergency Medicine; Family Provider Family Medicine Geriatric Medicine; PCP Family Medicine Geriatric Medicine
DX: R07.89 Other chest pain (principal); I10 Essential (primary) hypertension; E03.9 Hypothyroidism, unspecified; Z87.891 Personal history of nicotine dependence
CPT/HCPCS: 71046; 80053; 84484; 85025; 93005; 99284; A4216

== ENCOUNTER → 2019-08-09 13:37 | Outpatient (CLI) | payer MEDICARE, SELFPAY ==
[2019-07-14 06:16] VITALS: BMI 21.7
[2019-08-09 17:30] LABS: Absolute Lymphocyte Count 1.68 X10^3/uL (0.83-4.51); Absolute Neutrophil Count 4.1 X10^3/uL (2.0-7.7); Basophil# 0.08 X10^3/uL; Basophil% 1.2 % (0-1); Eosinophil# 0.07 X10^3/uL; Eosinophils% 1.1 % (0-5); Hematocrit 46.2 % (40-54); Hemoglobin 15.2 g/dL (13.0-16.5); Lymphocyte # 1.68 X10^3/ul (4.0); Lymphocyte % 25.8 % (19-41); Mean Corp Hgb Conc 32.9 g/dL (32-36); Mean Corpuscular Hgb 30.8 pg (27.0-32.0); Mean Corpuscular Volume 93.5 fL (80-94); Monocyte# 0.56 X10^3/uL; Monocyte% 8.6 % (0-10); NRBC Flagged by Analyzer 0 % (0-5); Neutrophil # 4.08 X10^3/uL (2.7-7.7); Neutrophil % 62.8 % (47-70); Platelet Count 206 K/mm3 (150-450); RBC Distribution Width CV 13.2 % (11.6-14.6); RBC Distribution Width SD 45.2 fl (35.1-43.9); Red Blood Count 4.94 M/mm3 (4.6-6.2); White Blood Count 6.5 K/mm3 (4.4-11.0)
[2019-08-09 17:42] LABS: Vitamin D,25 Hydroxy 31.5 ng/mL (29.95-100.01)
[2019-08-09 17:52] LABS: ALB/GLOB Ratio 1.1 RATIO (0.9-2.4); AST(SGOT) 23 U/L (15-37); Alanine Aminotransfer ALT/SGPT 19 U/L (16-61); Albumin, Serum 3.9 g/dL (3.2-5.0); Alkaline Phosphatase 58 U/L (45-117); Anion Gap 7 (5-15); BUN 15 mg/dL (7-18); BUN/Creat Ratio 10.9 RATIO (10-20); Calcium,Total 9.2 mg/dL (8.5-10.1); Chloride 105 mmol/L (98-107); Creatinine, Serum 1.37 mg/dL (0.70-1.30); EST Glomerular Filtration Rate 54 mL/min (>60); Est Glom Filt Rate - Afr Amer 65 mL/min (>60); Globulin 3.4 g/dL (2.2-4.2); Glucose 101 mg/dL (74-106); Potassium 4.2 mmol/L (3.5-5.1); Protein, Total 7.3 g/dL (6.4-8.2); Sodium Level 138 mmol/L (136-145); Thyroid Stim Hormone (TSH) 3.64 uIU/mL (0.358-3.74); Uric Acid 5.6 mg/dL (3.5-7.2)
== END ==
PROVIDERS: Family Provider Family Medicine Geriatric Medicine; PCP Family Medicine Geriatric Medicine; Visit Provider Family Medicine Geriatric Medicine
DX: E55.9 Vitamin D deficiency, unspecified (principal); R53.83 Other fatigue; M10.9 Gout, unspecified
CPT/HCPCS: 36415; 80053; 82306; 84443; 84550; 85025

== ENCOUNTER → 2019-12-28 13:29 | Outpatient (CLI) | payer MEDICARE, SELFPAY ==
--- NOTE | 2019-12-28 13:34 | VDLE_ITS ---
Reason For Study: DVT Procedure LEFT The exam was abbreviated due to the COVID 19 GSV is normal. protocol. CFV is compressible, spontaneous, phasic, The exam was diagnostic. competent, and demonstrates normal Pt taken to ED. Dr. Rivera's office is closed. augmentation. Prox and Mid FV are compressible. Dist FV, POP V, T/P Trunk, PTV, Peroneal V, Gastroc V, Soleus V, and SSV are dilated and noncompressible. Interpretation Summary Acute deep vein thrombosis is noted in the left distal femoral vein. Acute deep vein thrombosis is noted in the left popliteal vein. Acute deep vein thrombosis is noted in the left tibio-peroneal trunk. Acute deep vein thrombosis is noted in the left posterior tibial vein. Acute deep vein thrombosis is noted in the left peroneal vein. Acute deep vein thrombosis is noted in the left gastrocnemius vein. Acute deep vein thrombosis is noted in the left soleus vein. The left common femoral vein and proximal/mid-femoral vein are patent and compressible. The left great saphenous vein is patent and compressible. Acute superficial thrombophlebitis is noted in the left small saphenous vein. Ordering Physician: Brent Rivera Performed By: Spike Stock RVT
== END ==
PROVIDERS: PCP Family Medicine Geriatric Medicine; Referring Provider Family Medicine Geriatric Medicine; Visit Provider Family Medicine Geriatric Medicine
DX: I82.412 Acute embolism and thrombosis of left femoral vein (principal); I82.432 Acute embolism and thrombosis of left popliteal vein; I82.452 Acute embolism and thrombosis of left peroneal vein; I82.462 Acute embolism and thrombosis of left calf muscular vein; I82.890 Acute embolism and thrombosis of other specified veins; I82.402 Acute embolism and thrombosis of unspecified deep veins of left lower extremity; I83.892 Varicose veins of left lower extremity with other complications; E03.9 Hypothyroidism, unspecified; E78.5 Hyperlipidemia, unspecified; Z79.899 Other long term (current) drug therapy; Z87.891 Personal history of nicotine dependence
CPT/HCPCS: 93971; 99282

== ENCOUNTER 2019-12-28 14:02 | Emergency (ER) | payer MEDICARE, SELFPAY ==
[2019-12-28 14:02] VITALS: BP 153/83; PULSE 94; RESP 16; TEMP 36.8; O2SAT 97; BMI 22.6
--- NOTE | 2019-12-28 14:30 | ED.VIS.LOWEX ---
History of Present Illness Chief Complaint: Lower Extremity Injury Informant: Patient Onset: Weeks - 1 Context: Gradual Onset Timing: Continuous Quality of Pain: Aching Location: LLE Current Severity: Mild Maximum Severity: Mild Worsened by: nothing Relieved by: nothing Associated Symptoms: Negative for: Parasthesia, Weakness, Loss of Funtion Narrative: Patient has been having some mild pain and swelling in his left lower extremity, saw his PCP this morning and had an outpatient duplex ultrasound of the left lower extremity that was positive for DVT and so was sent here since his PCP was unavailable at the hour. Patient denies any chest pain, shortness of breath, palpitations, racing heartbeat, lightheadedness or near syncope. No recent immobilization, hospitalization, surgery, long travel, injury to his leg. He has never had a DVT or PE before. He currently does not take daily aspirin or anticoagulant. He has not experienced any bleeding from anywhere recently including the bowels. - Past Medical History (1) Hypothyroidism Status: Chronic (2) Hyperlipidemia Status: Chronic Past Medical History - Allergies and Home Meds Allergies/Adverse Reactions: Allergies Penicillins Allergy (Verified 12/28/19 14:04) Anaphylaxis Primary Care Physician: Brent Rivera Chi, MD [Primary Care Provider] - 1-2 Weeks Surgical History: no surgical history, noncontributory Smoking Status: Former smoker - Family History Maternal Family History: Reports: No pertinent history Review of Systems General: Denies: Chills, Fever, Sweats Cardiovascular: Denies: Chest pain, Palpitations, Heart racing Respiratory: Denies: Dyspnea, Cough, Dyspnea on exertion Gastrointestinal: Denies: Abdominal pain, Nausea, Vomiting, Diarrhea, Melena, Hematochezia Musculoskeletal: Reports: Swelling, Extremity Pain. Denies: Neck pain, Back pain Skin: Denies: Rash, Wounds Neurological: Denies: Headache, Weakness, Numbness Physical Exam Vital Signs/Narrative: Vital Signs Temp Pulse Resp BP Pulse Ox 12/28/19 14:02 98.2 F 94 16 153/83 H 97 Inital Vital Signs reviewed: Yes - Extremity Exam Left Tib Fib: - - Mild calf tenderness, a few venous varicosities in the left lower extremity, mild popliteal tenderness, mild edema compared with the right where there is none General: Well nourished, Well developed, - - nad Head: Normocephalic, Atraumatic Eyes: Perrl, EOMI Skin: Normal color, No rash, No Trauma Neurological: Alert, Oriented x3, Cranial nerves II-XII grossly intact, Normal Strength, Normal Sensation, Normal Gait Psychological: Normal affect, Normal Mood Diagnostic/Tx/Re-eval - Medical Decision Making Patient's ultrasound report from today shows multiple veins involved with DVT, all at or below the popliteal fossa. He does not have any symptoms of a pulmonary embolus. He was prescribed Eliquis and advised to start it as soon as possible and follow-up with his doctor. All questions answered at the bedside. ED Disposition - Plan for ED Patient: Disposition: Home or Assisted Living Diagnosis: Deep vein thrombosis (DVT) of left lower extremity Instructions: ED DVT Prescriptions: Apixaban [Eliquis] 10 mg PO BID 30 Days #74 tab Transmission Status: Pending to [facility] #30 Referrals: Brent Rivera Chi, MD [Primary Care Provider] - 1-2 Weeks
== END 2019-12-28 15:11 | disposition home or self-care (01) ==
LOC: ED 14:40
PROVIDERS: Emergency Provider Emergency Medicine; PCP Family Medicine Geriatric Medicine
DX: I82.402 Acute embolism and thrombosis of unspecified deep veins of left lower extremity (principal); I83.892 Varicose veins of left lower extremity with other complications; E78.5 Hyperlipidemia, unspecified; E03.9 Hypothyroidism, unspecified; Z79.899 Other long term (current) drug therapy; Z87.891 Personal history of nicotine dependence
CPT/HCPCS: 99282

== ENCOUNTER → 2020-02-07 13:29 | Outpatient (CLI) | payer MEDICARE, SELFPAY ==
[2020-02-07 16:57] LABS: Absolute Lymphocyte Count 1.65 X10^3/uL (0.83-4.51); Absolute Neutrophil Count 4.1 X10^3/uL (2.0-7.7); Basophil# 0.09 X10^3/uL; Basophil% 1.4 % (0-1); Eosinophils% 1.5 % (0-5); Hemoglobin 14.7 g/dL (13.0-16.5); Lymphocyte # 1.65 X10^3/ul (4.0); Lymphocyte % 25.1 % (19-41); Mean Corp Hgb Conc 32.7 g/dL (32-36); Mean Corpuscular Hgb 30.8 pg (27.0-32.0); Mean Corpuscular Volume 94.1 fL (80-94); Mean Platelet Vol. 9.6 fl (6.2-12.0); Monocyte# 0.59 X10^3/uL; NRBC Flagged by Analyzer 0 % (0-5); Neutrophil # 4.13 X10^3/uL (2.7-7.7); Neutrophil % 62.7 % (47-70); Platelet Count 264 K/mm3 (150-450); RBC Distribution Width CV 13.5 % (11.6-14.6); RBC Distribution Width SD 46.7 fl (35.1-43.9); Red Blood Count 4.78 M/mm3 (4.6-6.2); White Blood Count 6.6 K/mm3 (4.4-11.0)
[2020-02-07 17:12] LABS: Vitamin D,25 Hydroxy 32.4 ng/mL
[2020-02-07 17:35] LABS: AST(SGOT) 21 U/L (15-37); Alanine Aminotransfer ALT/SGPT 20 U/L (16-61); Albumin, Serum 3.6 g/dL (3.2-5.0); Alkaline Phosphatase 60 U/L (45-117); Anion Gap 6 (5-15); BUN 11 mg/dL (7-18); BUN/Creat Ratio 8.5 RATIO (10-20); Chloride 109 mmol/L (98-107); Creatinine, Serum 1.29 mg/dL (0.70-1.30); EST Glomerular Filtration Rate 58 mL/min (>60); Est Glom Filt Rate - Afr Amer 70 mL/min (>60); Globulin 3.5 g/dL (2.2-4.2); Glucose 93 mg/dL (74-106); Potassium 4.2 mmol/L (3.5-5.1); Protein, Total 7.1 g/dL (6.4-8.2); Sodium Level 140 mmol/L (136-145); Thyroid Stim Hormone (TSH) 3.15 uIU/mL (0.358-3.74); Uric Acid 4.8 mg/dL (3.5-7.2)
== END ==
PROVIDERS: PCP Family Medicine Geriatric Medicine; Visit Provider Family Medicine Geriatric Medicine
DX: E55.9 Vitamin D deficiency, unspecified (principal); R53.83 Other fatigue; M10.9 Gout, unspecified
CPT/HCPCS: 36415; 80053; 82306; 84443; 84550; 85025

== ENCOUNTER → 2020-02-18 08:48 | Outpatient (CLI) | payer MEDICARE, SELFPAY ==
--- NOTE | 2020-02-18 09:11 | US_ITS ---
PROCEDURES: ULTRASOUND AORTA REASON FOR EXAM: Male, 75 years old. AAA SCREENING TECHNIQUE: Ultrasound evaluation of the aorta was performed with real-time and static fernandez-scale imaging. COMPARISON: None. FINDINGS: There is atherosclerotic plaque formation of the abdominal aorta. Aorta measures: Proximal 1.4 cm. Middle 2.7 cm. Distal 1. cm. Aorta measure transversely: Proximal 1.6 cm. Middle 3.4 cm. Distal 2.0 cm. Right iliac artery measures: 0.9 cm. Right iliac artery measure transversely: 0.9 cm. Left iliac artery measures: 0.8 cm. Left iliac artery measure transversely: 1.0 cm. Stable fusiform abdominal aortic aneurysm with a transverse dimension of 3.4 cm. Mural thrombus is seen.. US/Aorta IMPRESSION: Stable examination. Electronically Signed: Mookie Morfin, at 13:46 EDT , Service support ,
== END ==
PROVIDERS: PCP Family Medicine Geriatric Medicine; Referring Provider Family Medicine Geriatric Medicine; Visit Provider Family Medicine Geriatric Medicine
DX: I71.4 Abdominal aortic aneurysm, without rupture (principal)
CPT/HCPCS: 76775

== ENCOUNTER → 2020-05-07 14:25 | Outpatient (CLI) | payer MEDICARE, SELFPAY ==
[2020-05-07 16:02] LABS: Absolute Lymphocyte Count 1.61 X10^3/uL (0.83-4.51); Absolute Neutrophil Count 4.3 X10^3/uL (2.0-7.7); Basophil# 0.05 X10^3/uL; Basophil% 0.7 % (0-1); Eosinophil# 0.13 X10^3/uL; Eosinophils% 1.9 % (0-5); Hematocrit 44.4 % (40-54); Hemoglobin 14.7 g/dL (13.0-16.5); Lymphocyte # 1.61 X10^3/ul (4.0); Lymphocyte % 23.4 % (19-41); Mean Corp Hgb Conc 33.1 g/dL (32-36); Mean Corpuscular Hgb 30.8 pg (27.0-32.0); Mean Corpuscular Volume 93.1 fL (80-94); Mean Platelet Vol. 9.2 fl (6.2-12.0); Monocyte# 0.76 X10^3/uL; Monocyte% 11.1 % (0-10); NRBC Flagged by Analyzer 0 % (0-5); Neutrophil # 4.29 X10^3/uL (2.7-7.7); Neutrophil % 62.5 % (47-70); Platelet Count 214 K/mm3 (150-450); RBC Distribution Width CV 13.5 % (11.6-14.6); Red Blood Count 4.77 M/mm3 (4.6-6.2); White Blood Count 6.9 K/mm3 (4.4-11.0)
[2020-05-07 16:14] LABS: Vitamin D,25 Hydroxy 36.2 ng/mL
[2020-05-07 16:15] LABS: ALB/GLOB Ratio 0.9 RATIO (0.9-2.4); AST(SGOT) 19 U/L (15-37); Alanine Aminotransfer ALT/SGPT 25 U/L (16-61); Albumin, Serum 3.4 g/dL (3.2-5.0); Alkaline Phosphatase 58 U/L (45-117); Anion Gap 4 (5-15); BUN 12 mg/dL (7-18); BUN/Creat Ratio 9.6 RATIO (10-20); Calcium,Total 8.9 mg/dL (8.5-10.1); Chloride 104 mmol/L (98-107); Creatinine, Serum 1.25 mg/dL (0.70-1.30); EST Glomerular Filtration Rate 60 mL/min (>60); Est Glom Filt Rate - Afr Amer 72 mL/min (>60); Globulin 3.8 g/dL (2.2-4.2); Glucose 97 mg/dL (74-106); Potassium 4.6 mmol/L (3.5-5.1); Protein, Total 7.2 g/dL (6.4-8.2); Sodium Level 136 mmol/L (136-145); Thyroid Stim Hormone (TSH) 4.02 uIU/mL (0.358-3.74); Uric Acid 4.9 mg/dL (3.5-7.2)
== END ==
PROVIDERS: PCP Family Medicine Geriatric Medicine; Visit Provider Family Medicine Geriatric Medicine
DX: E55.9 Vitamin D deficiency, unspecified (principal); R53.83 Other fatigue; M10.9 Gout, unspecified
CPT/HCPCS: 36415; 80053; 82306; 84443; 84550; 85025

== ENCOUNTER → 2020-07-02 14:23 | Outpatient (CLI) | payer MEDICARE, SELFPAY ==
[2020-07-02 15:27] LABS: Thyroid Stim Hormone (TSH) 0.51 uIU/mL (0.358-3.74)
== END ==
PROVIDERS: PCP Family Medicine Geriatric Medicine; Visit Provider Family Medicine Geriatric Medicine
DX: E03.9 Hypothyroidism, unspecified (principal)
CPT/HCPCS: 36415; 84443

== ENCOUNTER → 2020-08-05 13:39 | Outpatient (CLI) | payer MEDICARE, SELFPAY ==
[2020-08-05 14:56] LABS: Absolute Lymphocyte Count 1.61 X10^3/uL (0.83-4.51); Absolute Neutrophil Count 3.2 X10^3/uL (2.0-7.7); Basophil# 0.08 X10^3/uL; Basophil% 1.4 % (0-1); Eosinophil# 0.08 X10^3/uL; Eosinophils% 1.4 % (0-5); Hematocrit 44.9 % (40-54); Hemoglobin 14.9 g/dL (13.0-16.5); Lymphocyte # 1.61 X10^3/ul (4.0); Mean Corp Hgb Conc 33.2 g/dL (32-36); Mean Corpuscular Hgb 30.9 pg (27.0-32.0); Mean Corpuscular Volume 93.2 fL (80-94); Mean Platelet Vol. 9.7 fl (6.2-12.0); Monocyte# 0.58 X10^3/uL; Monocyte% 10.4 % (0-10); NRBC Flagged by Analyzer 0.4 % (0-5); Neutrophil % 57.6 % (47-70); Platelet Count 206 K/mm3 (150-450); RBC Distribution Width CV 13.2 % (11.6-14.6); RBC Distribution Width SD 45.4 fl (35.1-43.9); Red Blood Count 4.82 M/mm3 (4.6-6.2); White Blood Count 5.6 K/mm3 (4.4-11.0)
[2020-08-05 15:07] LABS: Vitamin D,25 Hydroxy 26.9 ng/mL
[2020-08-05 15:17] LABS: ALB/GLOB Ratio 1.1 RATIO (0.9-2.4); AST(SGOT) 18 U/L (15-37); Alanine Aminotransfer ALT/SGPT 20 U/L (16-61); Albumin, Serum 3.6 g/dL (3.2-5.0); Alkaline Phosphatase 65 U/L (45-117); Anion Gap 4 (5-15); BUN 13 mg/dL (7-18); BUN/Creat Ratio 9.9 RATIO (10-20); Calcium,Total 9.1 mg/dL (8.5-10.1); Chloride 108 mmol/L (98-107); Creatinine, Serum 1.31 mg/dL (0.70-1.30); EST Glomerular Filtration Rate 57 mL/min (>60); Est Glom Filt Rate - Afr Amer 69 mL/min (>60); Globulin 3.4 g/dL (2.2-4.2); Glucose 91 mg/dL (74-106); Potassium 4.4 mmol/L (3.5-5.1); Sodium Level 140 mmol/L (136-145); Thyroid Stim Hormone (TSH) 0.83 uIU/mL (0.358-3.74); Uric Acid 5.5 mg/dL (3.5-7.2)
== END ==
PROVIDERS: PCP Family Medicine Geriatric Medicine; Visit Provider Family Medicine Geriatric Medicine
DX: E55.9 Vitamin D deficiency, unspecified (principal); M10.9 Gout, unspecified; R53.83 Other fatigue
CPT/HCPCS: 36415; 80053; 82306; 84443; 84550; 85025

== ENCOUNTER 2020-10-27 08:02 | Emergency (ER) | payer MEDICARE, SELFPAY ==
[2020-10-27] VITALS (8 sets, daily range): BP systolic 144–197; BP diastolic 77–106; PULSE 66–76; RESP 12–486; TEMP 35.1; O2SAT 95–100; BMI 23.3
--- NOTE | 2020-10-27 08:07 | EKG12_ITS ---
Test Reason : STROKE Blood Pressure : / mmHG Vent. Rate : 071 BPM Atrial Rate : 071 BPM P-R Int : 130 ms QRS Dur : 098 ms QT Int : 422 ms P-R-T Axes : 075 038 069 degrees QTc Int : 458 ms Normal sinus rhythm Normal ECG Confirmed by BRET HARLEY, HAYLEY ([id number]), map editor JUAN CARLOS ALARCON ([id number]) on 10/28/2020 8:28:09 AM Referred By: BRIDGER Confirmed By:HAYLEY QUEEN MD
--- NOTE | 2020-10-27 08:07 | CT_ITS ---
STUDY: CT HEAD STROKE PROTOCOL W/O CONTRAST INJECTION REASON FOR EXAM: Male, 75 years old. Stroke RADIATION DOSAGE (If Supplied By Facility): CTDIvol = ( 60.81 ) mGy, DLP = ( 1112.69 ) mGycm TECHNIQUE: Transaxial CT imaging of the brain was performed without administration of intravenous contrast material. Individualized dose optimization techniques were used for this CT. COMPARISON: Comparison is made with prior study dated 02/19/2015. FINDINGS: Normal soft tissue structures. Normal calvarium. There is a 3.7 cm x 4.1 cm hematoma in the left cerebellar hemisphere medially extending into the vermis of the cerebellum and medial aspect of the right cerebellar hemisphere. This causes compression of the fourth ventricle and a mild degree of the hydrocephalus. There is also evidence of a subdural of the cerebellar tentorium. 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 There is mild cerebral atrophy with widening of the extra-axial spaces and ventricular dilatation. There are areas of decreased attenuation within the white matter tracts of the supratentorial brain, consistent with microvascular disease changes. Normal basal ganglia and thalami. Normal brainstem. Normal cerebellum. Partial opacification of the ethmoid sinuses and the sphenoid sinus. CT/STROKE Brain/Head without Cont IMPRESSION: 3.7 cm x 4.1 cm hematoma arising in the central portion of the cerebellum involving the medial aspect of the left and right cerebellar hemispheres and the vermis. There is also evidence of a subdural hematoma in the cerebellar tentorium. 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 N.B. : The above information has been verbally conveyed by Mookie Morfin MD to Eleuterio Traore on 10/27/2020 08:27:28 (ET). Electronically Signed: Mookie Morfin MD at 8:28 EST , Service support ,
--- NOTE | 2020-10-27 08:11 | NURSING ---
0803 STROKE ALERT FAXED FACESHEET TO [facility]
[2020-10-27] MEDS: Etomidate 20 MG/10 ML Vial IV (08:18)
[2020-10-27] MEDS: Rocuronium Bromide 50 MG/5 ML Vial 100 MG IV (08:18)
--- NOTE | 2020-10-27 08:23 | NURSING ---
[facility]
--- NOTE | 2020-10-27 08:24 | RAD_ITS ---
STUDY: X-RAY CHEST REASON FOR EXAM: Male, 75 years old. ETT PLACEMENT, NEURO DEFICIT TECHNIQUE: Single AP portable view of the chest. COMPARISON: Comparison is made with prior study dated 07/14/2019. FINDINGS: An endotracheal tube is in situ. The tip is at 4.3 cm proximal to the anastasia. An orogastric tube is in situ. The tip is in the fundal portion of the stomach. Hyperinflation. Minimal increased markings at the left lung base suggestive of atelectasis superimposed on scarring. There is blunting of the left costophrenic angle. Normal size heart. Normal mediastinum and kari. Normal visualized pulmonary arteries. There is atherosclerotic tortuosity of the aortic arch and descending thoracic aorta. There are diffuse degenerative changes of the visualized thoracic spine. Normal visualized ribs, clavicles, and shoulders. There is no demonstrated abnormality of the visualized soft tissue structures of the upper abdomen. RAD/Chest 1 View (Portable) IMPRESSION: The tip of the endotracheal tube is at 4.3 cm proximal to the anastasia. The tip of the orogastric tube is in the fundal portion of the stomach. Mild degree of increased markings at the left lung base suggestive of atelectasis superimposed on scarring. Blunting of the left costophrenic angle. Electronically Signed: Mookie Morfin MD at 9:02 EST , Service support ,
[2020-10-27 08:25] LABS: Absolute Lymphocyte Count 4.03 X10^3/uL (0.83-4.51); Absolute Neutrophil Count 3.4 X10^3/uL (2.0-7.7); Basophil# 0.08 X10^3/uL; Basophil% 0.9 % (0-1); Eosinophil# 0.13 X10^3/uL; Eosinophils% 1.5 % (0-5); Hematocrit 45.4 % (40-54); Lymphocyte # 4.03 X10^3/ul (4.0); Lymphocyte % 47.7 % (19-41); Mean Corpuscular Hgb 30.4 pg (27.0-32.0); Mean Corpuscular Volume 91.9 fL (80-94); Mean Platelet Vol. 9.1 fl (6.2-12.0); Monocyte# 0.73 X10^3/uL; Monocyte% 8.6 % (0-10); NRBC Flagged by Analyzer 0 % (0-5); Neutrophil % 40.4 % (47-70); Platelet Count 212 K/mm3 (150-450); RBC Distribution Width CV 13.5 % (11.6-14.6); Red Blood Count 4.94 M/mm3 (4.6-6.2); White Blood Count 8.5 K/mm3 (4.4-11.0)
--- NOTE | 2020-10-27 08:28 | ED.VIS.STROK ---
History of Present Illness Chief Complaint: Neuro S/Sx Narrative: Patient presenting for evaluation secondary to altered mental status. Approximately an hour prior to arrival, patient came downstairs and told his that he did not feel well. He had a sudden onset of a severe headache, slurred speech, severe dizziness with vomiting. There is no history of trauma associated with this. Patient has never had any prior similar episodes in the past. Patient does have a history of hypertension and he is anticoagulated with Coumadin. No recent infectious signs or symptoms. Review of systems otherwise negative. Past Medical History - Allergies and Home Meds Allergies/Adverse Reactions: Allergies Penicillins Allergy (Verified 10/27/20 08:04) Anaphylaxis Primary Care Physician: Brent Rivera Chi, MD [Primary Care Provider] - Prior records reviewed: Yes Past Medical History: - - DVT, hypertension, hypothyroidism Surgical History: no surgical history, noncontributory Lives: Spouse/ Significant Other Smoking Status: Former smoker Alcohol: None Drugs: None - Family History Maternal Family History: Reports: No pertinent history Review of Systems All systems negative except as indicated General: Denies: Chills, Fever, Sweats Eyes: Reports: Blurred Vision - bilaterally ENT: Denies: Rhinorrhea, Sore throat Cardiovascular: Denies: Chest pain, Palpitations Respiratory: Denies: Dyspnea, Cough, Dyspnea on exertion Gastrointestinal: Reports: Nausea, Vomiting Genitourinary: Denies: Dysuria, Hematuria, Frequency Musculoskeletal: Denies: Back pain, Extremity Pain Skin: Denies: Rash, Wounds Neurological: Reports: Headache, - - Slurred speech STROKE Vital Signs/Narrative: Vital Signs Pulse Resp BP Pulse Ox 10/27/20 08:24 100 10/27/20 08:22 76 18 195/106 H 100 10/27/20 08:17 71 24 H 197/92 H 95 Inital Vital Signs reviewed: Yes General: Well nourished, Well developed Head: Normocephalic, Atraumatic Eyes: - - Rightward gaze deviation ENT: Moist mucous membranes, No rhinorrhea Neck: Supple, Nontender Cardiovascular: Regular rate, Regular rhythm, No murmurs Respiratory: No distress, CTA bilaterally, Chest nontender Abdomen: Soft, Nontender, Nondistended, Normal bowel sounds Back: Nontender, Normal Inspection Extremities: Nontender, No edema Skin: Normal color, No rash Neurological: - - Patient has a rightward gaze deviation. He is somewhat somnolent. NIH stroke scale is actually only 2. Diagnostic/Tx/Re-eval Clinical Impression(s) from Imaging Studies Brain CT 10/27/20 08:07 IMPRESSION: 3.7 cm x 4.1 cm hematoma arising in the central portion of the cerebellum involving the medial aspect of the left and right cerebellar hemispheres and the vermis. There is also evidence of a subdural hematoma in the cerebellar tentorium. 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 N.B. : The above information has been verbally conveyed by Mookie Morfin MD to Eleuterio Traore on 10/27/2020 08:27:28 (ET). Electronically Signed: Mookie Morfin MD at 8:28 EST , Service support , ADDENDUM: 10/27/20 0835 IMPRESSION: 3.7 cm x 4.1 cm hematoma arising in the central portion of the cerebellum involving the medial aspect of the left and right cerebellar hemispheres and the vermis. There is also evidence of a subdural hematoma in the cerebellar tentorium. 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 N.B. : The above information has been verbally conveyed by Mookie Morfin MD to Eleuterio Traore on 10/27/2020 08:27:28 (ET). Electronically Signed: Mookie Morfin MD at 8:28 EST , Service support , Chest X-Ray 10/27/20 08:24 IMPRESSION: The tip of the endotracheal tube is at 4.3 cm proximal to the anastasia. The tip of the orogastric tube is in the fundal portion of the stomach. Mild degree of increased markings at the left lung base suggestive of atelectasis superimposed on scarring. Blunting of the left costophrenic angle. Electronically Signed: Mookie Morfin MD at 9:02 EST , Service support , Laboratory Data 10/27/20 10/27/20 10/27/20 08:12 08:12 08:12 WBC 8.5 RBC 4.94 Hgb 15.0 Hct 45.4 MCV 91.9 MCH 30.4 MCHC 33.0 RDW Std Deviation 46.0 H RDW Coeff of Glenn 13.5 Plt Count 212 MPV 9.1 Immature Gran % (Auto) 0.900 Neut % (Auto) 40.4 L Lymph % (Auto) 47.7 H Huntington % (Auto) 8.6 Eos % (Auto) 1.5 Baso % (Auto) 0.9 Absolute Neuts (auto) 3.4 Absolute Lymphs (auto) 4.03 Nucleated RBC % 0 PT 30.5 H INR 3.0 APTT 32.8 Sodium 140 Potassium 3.4 L Chloride 109 H Carbon Dioxide 24.0 Anion Gap 7 BUN 16 Creatinine 1.39 H Estim Creat Clear Calc 50.40 Est GFR (MDRD) Af Amer 64 Est GFR (MDRD) Non-Af 53 L BUN/Creatinine Ratio 11.5 Glucose 187 H Calcium 8.9 Troponin I < 0.015 - EKG Initial EKG Interpretation: - - Sinus rhythm at [address] segments normal T waves normal MD and QTc intervals no evidence of acute ischemia or arrhythmia - Medical Decision Making Patient presented secondary to altered mental status. Stroke team was activated upon the patient's arrival. Patient was taken directly to CT scan. I was at the bedside and noted the patient to have a large intracranial hemorrhage originating from the cerebellum. Patient was immediately brought back to the emergency department. Patient would have vomiting episodes anytime he was moved, was concern for airway compromise and aspiration. Patient had IV access obtained. He was premedicated with etomidate and rocuronium. Direct laryngoscopy was performed. Michelle 3 blade was utilized with good cord visualization. ET tube was advanced to 22 cm at the lip. There was good color change and bilateral breath sounds. Accidentally, a 6.5 ET tube was placed instead of a 7.5 but the patient was noted to have normal pressures on the ventilator and to be oxygenating well. Chest x-ray confirmed tube placement. Patient was placed on a Cardene drip with targeted blood pressures at 140 systolic due to significant hypertension. He was placed on propofol for sedation. Patient was given Kcentra secondary to his Coumadin status and an INR of 3.0. Patient was given Keppra for seizure prophylaxis. Acceptance was gained by [facility] and the patient will be transferred by air for further evaluation. I did discuss with the radiologist who stated that this potentially could be from a AV malformation in the area that was present on a prior MRI. I communicated this to the receiving facility. Patient was transferred in critical condition. Critical care time (excluding procedures): 30-74 minutes ED Disposition - Plan for ED Patient: Disposition: [facility] Diagnosis: Cerebellar hemorrhage, acute Referrals: Brent Rivera Chi, MD [Primary Care Provider] -
[2020-10-27 08:32] LABS: Prothrombin Time (Protime)PT. 30.5 SECONDS (11.7-14.9)
[2020-10-27 08:33] LABS: Partial Thromboplast Time 32.8 Seconds (24.1-36.2)
[2020-10-27 08:43] LABS: Anion Gap 7 (5-15); BUN 16 mg/dL (7-18); BUN/Creat Ratio 11.5 RATIO (10-20); Calcium,Total 8.9 mg/dL (8.5-10.1); Chloride 109 mmol/L (98-107); Creatinine, Serum 1.39 mg/dL (0.70-1.30); EST Glomerular Filtration Rate 53 mL/min (>60); Est Glom Filt Rate - Afr Amer 64 mL/min (>60); Glucose 187 mg/dL (74-106); Potassium 3.4 mmol/L (3.5-5.1); Sodium Level 140 mmol/L (136-145)
[2020-10-27] MEDS: Propofol 10MG/Ml 1,000 MG/100 ML Bottle 4.7 MG CONT INF (08:57)
[2020-10-27] MEDS: levETIRAcetam IV 1,000 MG/100 ML BAG 400 MG IV (09:01)
[2020-10-27 09:31] LABS: Bedside Glucose 166 mg/dL (70-110)
== END 2020-10-27 09:18 | disposition short-term general hospital (02) ==
PROVIDERS: Emergency Provider Emergency Medicine; PCP Family Medicine Geriatric Medicine
DX: I61.4 Nontraumatic intracerebral hemorrhage in cerebellum (principal); R47.81 Slurred speech; H53.8 Other visual disturbances; R29.702 NIHSS score 2; I10 Essential (primary) hypertension; E03.9 Hypothyroidism, unspecified; Z86.718 Personal history of other venous thrombosis and embolism; Z79.01 Long term (current) use of anticoagulants; Z79.899 Other long term (current) drug therapy; Z87.891 Personal history of nicotine dependence
CPT/HCPCS: 31500; 70450; 71045; 80048; 82962; 84484; 85025; 85610; 85730; 87426; 93005; 94002; 96365; 96368; 99251; 99285; C9132; A4216; G0463; J3490